=== PATIENT | female | born 1955 | race Caucasian/White ===

== ENCOUNTER 2017-10-07 15:32 | Emergency (ER) | payer MEDICAID ==
[~2017-10-07] VITALS: Ht 160 cm; Wt 86.4 kg
[~2017-10-07 15:32] MED LIST: ALBU18HF INH; ATOR20TA PO; BUTA1CAP57 PO; CLON1TAB PO; ENAL20TA PO; GABA600T PO; HYDR25TA6 PO; METF500T4 PO; METO25TA35 PO; RAME8TAB19 PO; TIOT18CA INH; TRAZ100T15 PO
[2017-10-07 15:33] VITALS: BP 143/81
[2017-10-07] MEDS ORDERED: DEXAMETHASONE 4 MG TABLET PO ONE (16:30)
[2017-10-07] MEDS ORDERED: DEXAMETHASONE 4 MG TABLET ONE (16:53)
[2017-10-07] MEDS ORDERED: ACETAMINOPHEN 325 MG TABLET ONE (16:53)
[2017-10-07] MEDS ORDERED: ACETAMINOPHEN 325 MG TABLET PO ONE (17:00)
== END 2017-10-07 16:58 | disposition home or self-care (01) ==
LOC: ED 16:45
DX: J02.0 Streptococcal pharyngitis (principal); J44.9 Chronic obstructive pulmonary disease, unspecified; K21.9 Gastro-esophageal reflux disease without esophagitis; E78.00 Pure hypercholesterolemia, unspecified; E11.9 Type 2 diabetes mellitus without complications
CPT/HCPCS: 87880; 99283

== ENCOUNTER → 2018-01-15 | Outpatient (CLI) | payer MEDICAID ==
[~2018-01-15] MED LIST changes: -METF500T4 PO; +METF500T5 PO; +OMNIPAQUE 350 MG/ML, 100ML BOTTLE ONE
== END | disposition home or self-care (01) ==
LOC: CFH 12:09
PROVIDERS: ATTEND Internal Medicine Hematology & Oncology
DX: J43.9 Emphysema, unspecified (principal); R59.0 Localized enlarged lymph nodes; K76.0 Fatty (change of) liver, not elsewhere classified; K76.89 Other specified diseases of liver; E27.8 Other specified disorders of adrenal gland; N85.2 Hypertrophy of uterus; D72.829 Elevated white blood cell count, unspecified; D75.1 Secondary polycythemia
CPT/HCPCS: 71260; 74177; Q9967

== ENCOUNTER → 2018-03-03 | Outpatient (CLI) | payer MEDICAID ==
[~2018-03-03] MED LIST changes: -OMNIPAQUE 350 MG/ML, 100ML BOTTLE ONE; +OMNIPAQUE 350 MG/ML, 75ML BOTTLE ONE; +TRAZ-137 PO; -TRAZ100T15 PO
== END | disposition home or self-care (01) ==
LOC: CFH 10:29
PROVIDERS: ATTEND Internal Medicine Hematology & Oncology
DX: J43.2 Centrilobular emphysema (principal); R59.0 Localized enlarged lymph nodes; D72.829 Elevated white blood cell count, unspecified; D75.1 Secondary polycythemia; E11.9 Type 2 diabetes mellitus without complications; K21.9 Gastro-esophageal reflux disease without esophagitis
CPT/HCPCS: 71260; 82565; Q9967

== ENCOUNTER 2019-02-24 00:33 | Emergency (ER) | payer MEDICAID ==
[~2019-02-24] VITALS: Ht 160 cm; Wt 80.2 kg
[~2019-02-24 00:33] MED LIST changes: +METF500T17 PO; -METF500T5 PO; -OMNIPAQUE 350 MG/ML, 75ML BOTTLE ONE
[2019-02-24 00:35] VITALS: BP 178/93
--- NOTE | 2019-02-24 01:15 | NUR ---
TASK RN: TECH AT BEDSIDE FOR WOUND IRRIGATION AND DRESSING
--- NOTE | 2019-02-24 01:46 | NUR ---
TASK RN: DC EDUCATION PROVIDED, PT DEMONSTRATES UNDERSTANDING. PT AMBULATED STEADILY TO DC WITH RN
[2019-04-29] MEDS ORDERED: DOCU-131 PO (08:11)
[2019-04-29] MEDS ORDERED: ASPI-496 PO (08:11)
[2019-04-29] MEDS ORDERED: PROPANOLOL PO (08:11)
[2019-04-29] MEDS ORDERED: GLIP5TAB10 PO (08:11)
[2019-04-29] MEDS ORDERED: RANI150C PO (08:11)
[2019-04-29] MEDS ORDERED: ARIP10TA33 PO (08:11)
[2019-04-29] MEDS ORDERED: ALOG25TA2 PO (08:11)
[2019-04-29] MEDS ORDERED: CYCL-259 PO (08:11)
[2019-04-29] MEDS ORDERED: FLUTICASONE NAS (08:11)
== END 2019-02-24 01:49 | disposition home or self-care (01) ==
LOC: ED 01:47
DX: S51.801A Unspecified open wound of right forearm, initial encounter (principal); I10 Essential (primary) hypertension; E11.9 Type 2 diabetes mellitus without complications; W01.0XXA Fall on same level from slipping, tripping and stumbling without subsequent striking against object, initial encounter; Y93.89 Activity, other specified; Y92.009 Unspecified place in unspecified non-institutional (private) residence as the place of occurrence of the external cause; Y99.8 Other external cause status
CPT/HCPCS: 99283

== ENCOUNTER 2020-01-22 15:23 | Emergency (ER) | payer MEDICAID ==
[~2020-01-22] VITALS: Ht 160 cm; Wt 85.5 kg
[~2020-01-22 15:23] MED LIST changes: +ALOG25TA2 PO; +ARIP10TA33 PO; +ASPI-496 PO; +CYCL-259 PO; +DOCU-131 PO; +FLUTICASONE NAS; +GLIP5TAB10 PO; +PROPANOLOL PO; +RANI150C PO; -TRAZ-137 PO; +TRAZ-175 PO
--- NOTE | 2020-01-22 15:46 | NUR ---
PT AMBULATED TO RESTROOM WITH STEADY GAIT TO PROVIDE URINE SAMPLE. UA ORDERED PER PROTOCOL AND SENT TO LAB.
[2020-01-22 16:06] LABS: MICROSCOPIC INDICATED
--- NOTE | 2020-01-22 16:52 | NUR ---
LAB AT BEDSIDE.
[2020-01-22 17:06] LABS: MEAN CORPUSCULAR HEMOGLOBIN 26.4 pg (27.0-34.8); MEAN CORPUSCULAR VOLUME 82.3 fL (80-100); MEAN PLATELET VOLUME 7.3 fL (7.4-10.4); PLATELET COUNT 315 x10^3/uL (130-400); RED BLOOD COUNT 5.65 x10^6/uL (3.82-5.3); RED CELL DISTRIBUTION WIDTH 14.7 % (9.6-15.2)
[2020-01-22 17:13] LABS: ALBUMIN 3.5 g/dL (3.4-5.0); ANION GAP 6 mmol/L (5-15); CALCIUM 8.7 mg/dL (8.5-10.1); CHLORIDE 106 mmol/L (98-107)
[2020-01-22 17:16] LABS: ALANINE AMINOTRANSFERASE 20 U/L (12-78); ALKALINE PHOSPHATASE 105 U/L (45-117); BILIRUBIN,TOTAL 0.2 mg/dL (0.2-1.0); CREATININE 1.13 mg/dL (0.55-1.02); TOTAL PROTEIN 7.1 g/dL (6.4-8.2)
[2020-01-22] MEDS ORDERED: SODIUM CHLORIDE 0.9% 1,000ML IVBOLUS ONE (17:30)
[2020-01-22] MEDS ORDERED: CEFTRIAXONE PMX 1GM/50ML 50 ML IV ONE (17:30)
[2020-01-22] MEDS ORDERED: SODIUM CHLORIDE FLUSH 10ML SYR IVF ONE (17:30)
[2020-01-22] MEDS ORDERED: CEFTRIAXONE PMX 1GM/50ML 50 ML ONE (17:33)
--- NOTE | 2020-01-22 17:37 | NUR ---
PIV PLACED. IVF RUNNING. 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 NO NEED FOR BLOOD CULTURES. PT HX LYMPHOMA, PT DOES NOT KNOWN BASELING WBC. PROVIDER AWARE.
[2020-01-22 17:38] VITALS: BP 108/69
--- NOTE | 2020-01-22 17:50 | NUR ---
MD AT BEDSIDE TO UPDATE PT ON POC.
[2020-01-22 18:16] LABS: MD YES
[2020-01-22 19:10] LABS: EOS#(MANUAL) 0.62 x10^3/uL (0.0-0.4); EOS% (MANUAL) 3 % (1-7); LYMPH#(MANUAL) 5.54 x10^3/uL (1-3.4); LYMPHS% (MANUAL) 27 % (22-44); MONOS#(MANUAL) 0.21 x10^3/uL (0.3-2.7); MONOS% (MANUAL) 1 % (2-9); REACTIVE LYMPHS # (MANUAL) 5.54 x10^3/uL (0-0); REACTIVE LYMPHS % (MANUAL) 27 % (0-0); SEG#(MANUAL) 7.59 x10^3/uL (1.8-6.8); SEGS% (MANUAL) 37 % (42-75)
[2020-01-22 19:11] LABS: OTHER CELLS # (MANUAL) 1.03 x10^3/uL (0-0); OTHER CELLS % (MANUAL) 5 % (0-0)
[2020-01-22 19:13] LABS: <RBC MORPHOLOGY> NORMAL
[2020-01-22 19:15] LABS: <PLATELET ESTIMATE> ADEQUATE; <PLT MORPHOLOGY> NORMAL PLT MORPH
--- NOTE | 2020-01-22 19:17 | NUR ---
ALL RESULTS ARE BACK AT THIS TIME. CHART UP FOR RECHECK,
== END 2020-01-22 19:45 | disposition home or self-care (01) ==
LOC: ED 16:24
DX: N30.01 Acute cystitis with hematuria (principal); R30.0 Dysuria; D72.829 Elevated white blood cell count, unspecified; R10.9 Unspecified abdominal pain; I10 Essential (primary) hypertension; E11.9 Type 2 diabetes mellitus without complications; K21.9 Gastro-esophageal reflux disease without esophagitis; J44.9 Chronic obstructive pulmonary disease, unspecified; F17.200 Nicotine dependence, unspecified, uncomplicated
CPT/HCPCS: 36415; 74176; 80053; 81001; 85025; 87086; 96365; 99284; J0696; J7030

== ENCOUNTER 2020-05-11 16:05 | Inpatient (IN) | payer MEDICAID ==
[~2020-05-11] VITALS: Ht 160 cm; Wt 86.8 kg
[~2020-05-11 16:05] MED LIST changes: -ENAL20TA PO; +ENAL20TA9 PO
--- NOTE | 2020-05-11 16:35 | NUR ---
THIS IS A 64 YO FEMALE COMING IN WITH C/O "WOKE UP WITH HORRIBLE HEADACHE, LIKE 10/10 PAIN, HAVING TROUBLE BREATHING WITH MY COPD, COUGH BUT I ALWAYS HAVE COUGH, LITTLE NAUSEA." DENIES CP. EKG COMPLETED. HX COPD, HTN, DM TYPE 2, LYMPHOMA. PULSE OX 88% RA IN TRIAGE. 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 VSS, BP 172/79 IN ROOM. ERP IN ROOM FOR EVAL. CALL LIGHT IN REACH
[2020-05-11] MEDS ORDERED: HYDROcodone/APAP 5/325 TABLET ONE (16:47)
--- NOTE | 2020-05-11 16:55 | NUR ---
CONSTRUCTION SPECIALIST IN ROOM, PATIENT MEDICATED PER EMAR, TOLERATED WELL
[2020-05-11] MEDS ORDERED: HYDROcodone/APAP 5/325 TABLET PO ONE (17:00)
[2020-05-11 17:06] LABS: MEAN CORPUSCULAR HEMOGLOBIN 25.9 pg (27.0-34.8); MEAN CORPUSCULAR HGB CONC 31.9 g/dL (32.4-35.8); MEAN PLATELET VOLUME 6.8 fL (7.4-10.4); PLATELET COUNT 286 x10^3/uL (130-400); RED BLOOD COUNT 5.88 x10^6/uL (3.82-5.3); RED CELL DISTRIBUTION WIDTH 15.6 % (9.6-15.2)
[2020-05-11 17:16] LABS: ALBUMIN 3.6 g/dL (3.4-5.0); ANION GAP 3 mmol/L (5-15); CALCIUM 9.4 mg/dL (8.5-10.1); CHLORIDE 109 mmol/L (98-107); CREATININE 0.81 mg/dL (0.55-1.02)
[2020-05-11] MEDS ORDERED: ALBUTEROL SULFATE 2.5 MG/3 ML ONE (17:18)
[2020-05-11 17:20] LABS: TROPONIN I < 0.015 ng/mL (0.000-0.045)
--- NOTE | 2020-05-11 17:21 | NUR ---
BREATHING TX STARTED, PATIENT TOLERATING WELL
[2020-05-11] MEDS ORDERED: ALBUTEROL SULFATE 2.5 MG/3 ML NPPB ONE (17:30)
[2020-05-11 17:41] LABS: MD YES
--- NOTE | 2020-05-11 17:42 | NUR ---
PATIENT DROPPED TO 83% IN ROOM WHILE OFF O2, ERP NOTIFIED. Addendum: 05/11/20 at 1742 by GELY PLACED BACK ON 2L NC, UP TO 94%
[2020-05-11 18:04] LABS: BANDS%(MANUAL) 2 % (0-7); BASOS% (MANUAL) 2 % (0-1); EOS% (MANUAL) 1 % (1-7); LYMPH#(MANUAL) 6.57 x10^3/uL (1-3.4); LYMPHS% (MANUAL) 33 % (22-44); MONOS% (MANUAL) 3 % (2-9); REACTIVE LYMPHS # (MANUAL) 1.99 x10^3/uL (0-0); REACTIVE LYMPHS % (MANUAL) 10 % (0-0); SEG#(MANUAL) 9.75 x10^3/uL (1.8-6.8); SEGS% (MANUAL) 49 % (42-75)
[2020-05-11 18:06] LABS: <PLATELET ESTIMATE> ADEQUATE; <PLT MORPHOLOGY> NORMAL PLT MORPH; ANISOCYTOSIS 1+; POLYCHROMASIA 1+
--- NOTE | 2020-05-11 18:13 | NUR ---
PATIENT DID NOT TOLERATE AMBULATING WITHOUT SPO2 DROPPING, ERP NOTIFIED. PATIENT TO BE ADMITTED. MEAL TRAY ORDERED. PIV PLACED
--- NOTE | 2020-05-11 18:20 | NUR ---
DIABETIC MEAL TRAY ORDERED
[2020-05-11] MEDS ORDERED: methylPREDNISolone SOD SUCC 125 MG/2 ML IVPush ONE (18:30)
[2020-05-11] MEDS ORDERED: methylPREDNISolone SOD SUCC 125 MG/2 ML ONE (18:42)
[2020-05-11] MEDS ORDERED: ASA/APAP/ CAFFEINE TABLET PO PRN (19:30)
[2020-05-11] MEDS ORDERED: ONDANSETRON ODT 4 MG PO PRN (19:30)
[2020-05-11] MEDS ORDERED: POLYETHYLENE GLYCOL 17 GM PACKET PO PRN (19:30)
[2020-05-11] MEDS ORDERED: ENALAPRILAT 1.25 MG/ML, 2ML IVPush PRN (19:30)
[2020-05-11] MEDS ORDERED: BISACODYL 10 MG SUPP PR PRN (19:30)
--- NOTE | 2020-05-11 19:30 | NUR ---
PATIENT RESTING, RESPIRATIONS EVEN AND UNLABORED, VSS, NADN. CALL LIGHT IN REACH, MONITORING IN PLACE
[2020-05-11] MEDS ORDERED: AZITHROMYCIN 500 MG TABLET PO ONE (20:30)
[2020-05-11] MEDS ORDERED: ACETAMINOPHEN 325 MG TABLET PO PRN (20:30)
[2020-05-11] MEDS ORDERED: GLUCAGON 1 MG IM PRN (20:30)
[2020-05-11] MEDS ORDERED: DEXTROSE 50%, 50ML SYRINGE IVPush PRN (20:30)
[2020-05-11] MEDS ORDERED: DEXTROSE 4 GM TAB.CHEW PO PRN (20:30)
[2020-05-11] MEDS ORDERED: IPRATROPIUM 0.5 MG/2.5 ML INHA NPPB PRN (20:30)
[2020-05-11] MEDS ORDERED: ALBUTEROL SULFATE 2.5MG/0.5ML NEB PRN (20:30)
--- NOTE | 2020-05-11 20:40 | NUR ---
CALL PLACED TO [facility] AFTER HOURS NUMBER TO ATTEMPT TO REACH [facility] RESIDENT MARK FLOREZ, WHO PUT ADMISSION FLOOR ORDERS IN FOR THIS PATIENT, BUT DID NOT PUT ADMIT ORDERS IN. DUE TO THAT, PATIENT IS STILL DOWN HERE IN ED. AWAITING CALL BACK FROM MD RESIDENT MARK FLOREZ.
--- NOTE | 2020-05-11 20:44 | NUR ---
MARK FLOREZ MD RESIDENT CALLED BACK, STATES HE WILL PUT ADMIT ORDERS IN ON PATIENT
[2020-05-11 20:56] LABS: FREE T4 (FREE THYROXINE) 1.14 ng/dL (0.76-1.46)
[2020-05-11] MEDS: SODIUM CHLORIDE FLUSH 10ML SYR IVF SCH (21:00)
[2020-05-11] MEDS ORDERED: POTASSIUM CHLORIDE 20 MEQ TAB.ER.PRT PO ONE (21:30)
[2020-05-11] MEDS ORDERED: ACETAMINOPHEN 325 MG TABLET ONE (22:24)
--- NOTE | 2020-05-11 22:55 | NUR ---
REPORT GIVEN TO MARIA G MARCELINO. PLAN OF CARE DISCUSSED
[2020-05-11 23:41] VITALS: BP 160/81
[2020-05-12] MEDS ORDERED: ALBUTEROL-IPRATROPIUM MDI INH INH PRN
[2020-05-12] MEDS: FAMOTIDINE 20 MG TABLET PO SCH ×3 (00:12→20:54)
[2020-05-12] MEDS: ENOXAPARIN 40 MG/0.4 ML SQ SCH ×2 (00:12→20:46)
[2020-05-12] MEDS: GABAPENTIN 300 MG CAPSULE PO SCH ×3 (00:12→20:46)
[2020-05-12 00:17] VITALS: BP 160/81
[2020-05-12] MEDS: INSULIN LISPRO 100 UNITS/ML, PEN SQ-INSULIN SCH ×5 (00:36→21:46)
[2020-05-12 06:03] LABS: BASOPHILS % (AUTO) 0 % (0-1); EOSINOPHILS % (AUTO) 0 % (1-7); LYMPHOCYTES % (AUTO) 33 % (22-44); MEAN CORPUSCULAR HEMOGLOBIN 25.7 pg (27.0-34.8); MEAN CORPUSCULAR HGB CONC 31.9 g/dL (32.4-35.8); MEAN PLATELET VOLUME 7.4 fL (7.4-10.4); MONOCYTES % (AUTO) 1 % (2-9); NEUTROPHILS % (AUTO) 66 % (42-75); PLATELET COUNT 302 x10^3/uL (130-400); RED CELL DISTRIBUTION WIDTH 15.5 % (9.6-15.2)
[2020-05-12 06:08] LABS: ALBUMIN 3.5 g/dL (3.4-5.0); ANION GAP 5 mmol/L (5-15); CALCIUM 9.5 mg/dL (8.5-10.1); CHLORIDE 107 mmol/L (98-107)
[2020-05-12 06:12] LABS: ALANINE AMINOTRANSFERASE 18 U/L (12-78); ALKALINE PHOSPHATASE 96 U/L (45-117); BILIRUBIN,TOTAL 0.4 mg/dL (0.2-1.0); CHOL/HDL RATIO 3.4; CHOLESTEROL, TOTAL 139 mg/dL (140-239); CREATININE 1.18 mg/dL (0.55-1.02); HDL CHOL % 29 % (28-40); HDL CHOLESTEROL (DIRECT) 41 mg/dL (40-60); LDL CHOLESTEROL,CALCULATED 49 mg/dL (54-169); LDL/HDL RATIO 1.2 (0.5-3.0); MD NO; TOTAL PROTEIN 7.4 g/dL (6.4-8.2); TRIGLYCERIDES 247 mg/dL (50-200); VLDL CHOLESTEROL 49 mg/dL (0-25)
[2020-05-12 06:23] VITALS: BP 162/91
[2020-05-12] MEDS ORDERED: FAMOTIDINE 40 MG TABLET ONE ×2 (08:10→20:40)
[2020-05-12] MEDS: ASPIRIN 81 MG TABLET EC PO SCH (08:18)
[2020-05-12] MEDS: ATORVASTATIN 20 MG TABLET PO SCH (08:18)
[2020-05-12] MEDS: AZITHROMYCIN 250 MG TABLET PO SCH (08:19)
[2020-05-12] MEDS: PROPRANOLOL 20 MG TABLET PO SCH (08:19)
[2020-05-12] MEDS: ARIPIPRAZOLE 10 MG TABLET PO SCH (08:19)
[2020-05-12] MEDS: HYDROCHLOROTHIAZIDE 12.5 MG CAPSULE PO SCH (08:19)
[2020-05-12] MEDS: ENALAPRIL 20MG TABLET PO SCH (08:19)
[2020-05-12] MEDS: SENNA/DOCUSATE TABLET PO SCH (08:23)
[2020-05-12] MEDS: SODIUM CHLORIDE FLUSH 10ML SYR IVF SCH ×2 (08:24→20:54)
[2020-05-12 12:31] VITALS: BP 150/82
[2020-05-12] MEDS: ALBUTEROL-IPRATROPIUM MDI INH INH SCH ×2 (15:13→20:15)
[2020-05-12 19:03] VITALS: BP 152/86
[2020-05-12] MEDS ORDERED: OMEP-110 PO (20:48)
[2020-05-12] MEDS: BENZONATATE 100 MG CAPSULE PO SCH (21:45)
[2020-05-13] MEDS: ALBUTEROL-IPRATROPIUM MDI INH INH SCH ×3 (02:29→08:43)
[2020-05-13 03:20] VITALS: BP 139/81
[2020-05-13 05:13] LABS: ANION GAP 5 mmol/L (5-15); CALCIUM 9.2 mg/dL (8.5-10.1); CHLORIDE 107 mmol/L (98-107)
[2020-05-13 05:15] LABS: BASOPHILS % (AUTO) 1 % (0-1); EOSINOPHILS % (AUTO) 0 % (1-7); LYMPHOCYTES % (AUTO) 46 % (22-44); MEAN CORPUSCULAR HEMOGLOBIN 25.8 pg (27.0-34.8); MONOCYTES % (AUTO) 5 % (2-9); NEUTROPHILS % (AUTO) 48 % (42-75); PLATELET COUNT 298 x10^3/uL (130-400); RED BLOOD COUNT 5.38 x10^6/uL (3.82-5.3); RED CELL DISTRIBUTION WIDTH 15.7 % (9.6-15.2)
[2020-05-13 06:22] LABS: MD YES
[2020-05-13 06:24] LABS: BAND#(MANUAL) 0.24 x10^3/uL; BANDS%(MANUAL) 1 % (0-7); LYMPH#(MANUAL) 5.02 x10^3/uL (1-3.4); LYMPHS% (MANUAL) 21 % (22-44); MONOS% (MANUAL) 5 % (2-9); REACTIVE LYMPHS # (MANUAL) 6.21 x10^3/uL (0-0); REACTIVE LYMPHS % (MANUAL) 26 % (0-0); SEG#(MANUAL) 11.23 x10^3/uL (1.8-6.8); SEGS% (MANUAL) 47 % (42-75)
[2020-05-13 06:25] LABS: <PLATELET ESTIMATE> ADEQUATE; <PLT MORPHOLOGY> NORMAL PLT MORPH; <RBC MORPHOLOGY> NORMAL
[2020-05-13 06:34] VITALS: BP 134/77
[2020-05-13] MEDS: INSULIN LISPRO 100 UNITS/ML, PEN SQ-INSULIN SCH ×4 (08:45→20:15)
[2020-05-13] MEDS: ATORVASTATIN 20 MG TABLET PO SCH (09:03)
[2020-05-13] MEDS: ENALAPRIL 20MG TABLET PO SCH (09:03)
[2020-05-13] MEDS: SENNA/DOCUSATE TABLET PO SCH (09:04)
[2020-05-13] MEDS: AZITHROMYCIN 250 MG TABLET PO SCH (09:04)
[2020-05-13] MEDS: OMEPRAZOLE 20 MG CAPSULE.DR PO SCH (09:04)
[2020-05-13] MEDS: HYDROCHLOROTHIAZIDE 12.5 MG CAPSULE PO SCH (09:05)
[2020-05-13] MEDS: ARIPIPRAZOLE 10 MG TABLET PO SCH (09:05)
[2020-05-13] MEDS: PROPRANOLOL 20 MG TABLET PO SCH (09:05)
[2020-05-13] MEDS: ASPIRIN 81 MG TABLET EC PO SCH (09:05)
[2020-05-13] MEDS: GABAPENTIN 300 MG CAPSULE PO SCH ×2 (09:05→20:17)
[2020-05-13] MEDS: SODIUM CHLORIDE FLUSH 10ML SYR IVF SCH ×2 (09:08→20:17)
[2020-05-13] MEDS: ALBUTEROL HFA 90 MCG/SPRAY INH SCH ×3 (11:03→19:18)
[2020-05-13 12:59] VITALS: BP 139/79
[2020-05-13 18:45] VITALS: BP 152/85
[2020-05-13] MEDS: ENOXAPARIN 40 MG/0.4 ML SQ SCH (19:30)
[2020-05-13] MEDS: BENZONATATE 100 MG CAPSULE PO SCH (20:18)
[2020-05-13] MEDS: FAMOTIDINE 20 MG TABLET PO SCH (20:22)
[2020-05-14 00:29] VITALS: BP 131/83
[2020-05-14] MEDS: INSULIN LISPRO 100 UNITS/ML, PEN SQ-INSULIN SCH ×4 (07:00→20:35)
[2020-05-14] MEDS: ALBUTEROL HFA 90 MCG/SPRAY INH SCH ×4 (07:00→18:47)
[2020-05-14 07:57] VITALS: BP 163/85
[2020-05-14] MEDS: ALBUTEROL-IPRATROPIUM MDI INH INH SCH (08:21)
[2020-05-14] MEDS ORDERED: ALBUTEROL-IPRATROPIUM MDI INH INH PRN (08:30)
[2020-05-14] MEDS: OMEPRAZOLE 20 MG CAPSULE.DR PO SCH (08:48)
[2020-05-14] MEDS: SODIUM CHLORIDE FLUSH 10ML SYR IVF SCH ×2 (08:48→20:37)
[2020-05-14] MEDS: ASPIRIN 81 MG TABLET EC PO SCH (08:49)
[2020-05-14] MEDS: PROPRANOLOL 20 MG TABLET PO SCH (08:49)
[2020-05-14] MEDS: GABAPENTIN 300 MG CAPSULE PO SCH ×2 (08:51→20:38)
[2020-05-14] MEDS: SENNA/DOCUSATE TABLET PO SCH (08:51)
[2020-05-14] MEDS: ENALAPRIL 20MG TABLET PO SCH (08:51)
[2020-05-14] MEDS: AZITHROMYCIN 250 MG TABLET PO SCH (08:51)
[2020-05-14] MEDS: HYDROCHLOROTHIAZIDE 12.5 MG CAPSULE PO SCH (08:51)
[2020-05-14 08:52] LABS: MEAN CORPUSCULAR HEMOGLOBIN 25.3 pg (27.0-34.8); MEAN CORPUSCULAR HGB CONC 31.2 g/dL (32.4-35.8); MEAN PLATELET VOLUME 6.8 fL (7.4-10.4); PLATELET COUNT 285 x10^3/uL (130-400); RED BLOOD COUNT 5.97 x10^6/uL (3.82-5.3); RED CELL DISTRIBUTION WIDTH 15.7 % (9.6-15.2)
[2020-05-14 09:13] LABS: MD YES
[2020-05-14 09:15] LABS: BASOS#(MANUAL) 0.28 x10^3/uL (0-0.1); BASOS% (MANUAL) 1 % (0-1); LYMPH#(MANUAL) 8.53 x10^3/uL (1-3.4); LYMPHS% (MANUAL) 31 % (22-44); MONOS#(MANUAL) 0.28 x10^3/uL (0.3-2.7); MONOS% (MANUAL) 1 % (2-9); REACTIVE LYMPHS # (MANUAL) 5.78 x10^3/uL (0-0); REACTIVE LYMPHS % (MANUAL) 21 % (0-0); SEG#(MANUAL) 12.65 x10^3/uL (1.8-6.8); SEGS% (MANUAL) 46 % (42-75)
[2020-05-14 09:16] LABS: <PLATELET ESTIMATE> ADEQUATE; <PLT MORPHOLOGY> NORMAL PLT MORPH; <RBC MORPHOLOGY> NORMAL
[2020-05-14 14:05] VITALS: BP 145/83
[2020-05-14] MEDS: CEFTRIAXONE PMX 1GM/50ML 50 ML IV SCH (14:42)
[2020-05-14] MEDS ORDERED: ARIPIPRAZOLE 5 MG TABLET ONE (20:31)
[2020-05-14 20:34] VITALS: BP 150/79
[2020-05-14] MEDS: BENZONATATE 100 MG CAPSULE PO SCH (20:36)
[2020-05-14] MEDS: ENOXAPARIN 40 MG/0.4 ML SQ SCH (20:36)
[2020-05-14] MEDS: ARIPIPRAZOLE 10 MG TABLET PO SCH (20:37)
[2020-05-14] MEDS: ATORVASTATIN 20 MG TABLET PO SCH (20:38)
[2020-05-14] MEDS: FAMOTIDINE 20 MG TABLET PO SCH (20:38)
[2020-05-15 00:57] VITALS: BP 132/76
[2020-05-15 06:54] VITALS: BP 133/72
[2020-05-15] MEDS: INSULIN LISPRO 100 UNITS/ML, PEN SQ-INSULIN SCH ×5 (07:00→22:25)
[2020-05-15] MEDS: ALBUTEROL HFA 90 MCG/SPRAY INH SCH ×4 (07:51→19:03)
[2020-05-15 09:25] LABS: MEAN CORPUSCULAR HEMOGLOBIN 25.7 pg (27.0-34.8); MEAN CORPUSCULAR HGB CONC 31.5 g/dL (32.4-35.8); MEAN PLATELET VOLUME 6.7 fL (7.4-10.4); PLATELET COUNT 288 x10^3/uL (130-400); RED BLOOD COUNT 5.57 x10^6/uL (3.82-5.3)
[2020-05-15 09:34] LABS: ALANINE AMINOTRANSFERASE 16 U/L (12-78); ALBUMIN 3.3 g/dL (3.4-5.0); ANION GAP 10 mmol/L (5-15); CALCIUM 9.4 mg/dL (8.5-10.1); CHLORIDE 109 mmol/L (98-107); CREATININE 0.96 mg/dL (0.55-1.02)
[2020-05-15 09:39] LABS: ALKALINE PHOSPHATASE 80 U/L (45-117); BILIRUBIN,TOTAL 0.3 mg/dL (0.2-1.0); TOTAL PROTEIN 6.7 g/dL (6.4-8.2)
[2020-05-15] MEDS: ATORVASTATIN 20 MG TABLET PO SCH (10:00)
[2020-05-15] MEDS: SENNA/DOCUSATE TABLET PO SCH (10:00)
[2020-05-15] MEDS: OMEPRAZOLE 20 MG CAPSULE.DR PO SCH (10:00)
[2020-05-15] MEDS: ASPIRIN 81 MG TABLET EC PO SCH (10:01)
[2020-05-15] MEDS: PROPRANOLOL 20 MG TABLET PO SCH (10:01)
[2020-05-15] MEDS: AZITHROMYCIN 250 MG TABLET PO SCH (10:01)
[2020-05-15] MEDS: HYDROCHLOROTHIAZIDE 12.5 MG CAPSULE PO SCH (10:01)
[2020-05-15] MEDS: ENALAPRIL 20MG TABLET PO SCH (10:01)
[2020-05-15] MEDS: ARIPIPRAZOLE 10 MG TABLET PO SCH (10:02)
[2020-05-15 10:10] VITALS: BP 146/80
[2020-05-15 10:10] LABS: MD YES
[2020-05-15 10:12] LABS: EOS#(MANUAL) 0.22 x10^3/uL (0.0-0.4); EOS% (MANUAL) 1 % (1-7); LYMPH#(MANUAL) 2.45 x10^3/uL (1-3.4); LYMPHS% (MANUAL) 11 % (22-44); REACTIVE LYMPHS # (MANUAL) 8.25 x10^3/uL (0-0); REACTIVE LYMPHS % (MANUAL) 37 % (0-0); SEG#(MANUAL) 11.37 x10^3/uL (1.8-6.8); SEGS% (MANUAL) 51 % (42-75)
[2020-05-15] MEDS: GABAPENTIN 300 MG CAPSULE PO SCH ×2 (10:14→22:19)
[2020-05-15] MEDS: SODIUM CHLORIDE FLUSH 10ML SYR IVF SCH ×2 (10:15→22:17)
[2020-05-15 10:22] LABS: <PLATELET ESTIMATE> ADEQUATE; <PLT MORPHOLOGY> NORMAL PLT MORPH
[2020-05-15 10:23] LABS: HYPOCHROMIA 1+
[2020-05-15] MEDS: ALBUTEROL-IPRATROPIUM MDI INH INH SCH (11:07)
[2020-05-15 11:26] VITALS: BP 139/94
[2020-05-15] MEDS: methylPREDNISolone SOD SUCC 40 MG/ML IV SCH ×2 (11:43→22:18)
[2020-05-15] MEDS: INSULIN GLARGINE 100 UNITS/ML, PEN SQ-INSULIN SCH ×2 (12:32→22:24)
[2020-05-15] MEDS: CEFTRIAXONE PMX 1GM/50ML 50 ML IV SCH (14:37)
[2020-05-15] MEDS: AZITHROMYCIN 500 MG in SODIUM CHLORIDE 0.9% 250 ML IV SCH (16:27)
[2020-05-15 20:04] VITALS: BP 160/82
[2020-05-15] MEDS: BENZONATATE 100 MG CAPSULE PO SCH (22:18)
[2020-05-15] MEDS: FAMOTIDINE 20 MG TABLET PO SCH (22:19)
[2020-05-15] MEDS: ENOXAPARIN 40 MG/0.4 ML SQ SCH (22:20)
[2020-05-16 02:35] VITALS: BP 160/91
[2020-05-16 07:06] VITALS: BP 148/87
[2020-05-16] MEDS: ALBUTEROL HFA 90 MCG/SPRAY INH SCH ×5 (07:30→20:30)
[2020-05-16] MEDS: ALBUTEROL-IPRATROPIUM MDI INH INH SCH (07:46)
[2020-05-16] MEDS: INSULIN LISPRO 100 UNITS/ML, PEN SQ-INSULIN SCH ×4 (08:07→21:20)
[2020-05-16] MEDS: INSULIN GLARGINE 100 UNITS/ML, PEN SQ-INSULIN SCH ×2 (08:08→21:19)
[2020-05-16] MEDS: ARIPIPRAZOLE 10 MG TABLET PO SCH (08:09)
[2020-05-16] MEDS: SENNA/DOCUSATE TABLET PO SCH (08:09)
[2020-05-16] MEDS: HYDROCHLOROTHIAZIDE 12.5 MG CAPSULE PO SCH (08:09)
[2020-05-16] MEDS: ENALAPRIL 20MG TABLET PO SCH ×2 (08:09→21:21)
[2020-05-16] MEDS: ATORVASTATIN 20 MG TABLET PO SCH (08:09)
[2020-05-16] MEDS: PROPRANOLOL 20 MG TABLET PO SCH (08:10)
[2020-05-16] MEDS: methylPREDNISolone SOD SUCC 40 MG/ML IV SCH (08:10)
[2020-05-16] MEDS: ASPIRIN 81 MG TABLET EC PO SCH (08:10)
[2020-05-16] MEDS: OMEPRAZOLE 20 MG CAPSULE.DR PO SCH (08:10)
[2020-05-16] MEDS: GABAPENTIN 300 MG CAPSULE PO SCH ×2 (08:10→21:21)
[2020-05-16] MEDS: ALOGLIPTIN BENZOATE HOMEMEDPO SCH (08:11)
[2020-05-16] MEDS: SODIUM CHLORIDE FLUSH 10ML SYR IVF SCH ×2 (08:11→21:21)
[2020-05-16 12:02] VITALS: BP 150/85
[2020-05-16] MEDS: CEFTRIAXONE PMX 1GM/50ML 50 ML IV SCH (14:07)
[2020-05-16] MEDS: AZITHROMYCIN 500 MG in SODIUM CHLORIDE 0.9% 250 ML IV SCH (15:09)
[2020-05-16] MEDS ORDERED: AMLODIPINE 5 MG TABLET PO SCH (19:00)
[2020-05-16 19:12] VITALS: BP 149/85
[2020-05-16] MEDS: ENOXAPARIN 40 MG/0.4 ML SQ SCH (21:20)
[2020-05-16] MEDS: BENZONATATE 100 MG CAPSULE PO SCH (21:21)
[2020-05-16] MEDS: FAMOTIDINE 20 MG TABLET PO SCH (21:22)
[2020-05-16] MEDS: AMLODIPINE 5 MG TABLET PO SCH (21:22)
[2020-05-17 01:35] VITALS: BP 124/80
[2020-05-17] MEDS: INSULIN LISPRO 100 UNITS/ML, PEN SQ-INSULIN SCH ×4 (07:00→19:58)
[2020-05-17 07:14] VITALS: BP 139/84
[2020-05-17] MEDS: SENNA/DOCUSATE TABLET PO SCH (07:44)
[2020-05-17] MEDS: ATORVASTATIN 20 MG TABLET PO SCH (07:45)
[2020-05-17] MEDS: ENALAPRIL 20MG TABLET PO SCH ×2 (07:45→19:38)
[2020-05-17] MEDS: HYDROCHLOROTHIAZIDE 12.5 MG CAPSULE PO SCH (07:45)
[2020-05-17] MEDS: GABAPENTIN 300 MG CAPSULE PO SCH ×2 (07:45→19:37)
[2020-05-17] MEDS: OMEPRAZOLE 20 MG CAPSULE.DR PO SCH (07:46)
[2020-05-17] MEDS: PROPRANOLOL 20 MG TABLET PO SCH (07:46)
[2020-05-17] MEDS: AMLODIPINE 5 MG TABLET PO SCH ×2 (07:46→19:37)
[2020-05-17] MEDS: ASPIRIN 81 MG TABLET EC PO SCH (07:46)
[2020-05-17] MEDS: ARIPIPRAZOLE 10 MG TABLET PO SCH (07:46)
[2020-05-17] MEDS: ALBUTEROL HFA 90 MCG/SPRAY INH SCH ×4 (07:49→19:54)
[2020-05-17] MEDS: ALBUTEROL-IPRATROPIUM MDI INH INH SCH (07:50)
[2020-05-17] MEDS: ALOGLIPTIN BENZOATE HOMEMEDPO SCH (07:51)
[2020-05-17] MEDS: SODIUM CHLORIDE FLUSH 10ML SYR IVF SCH ×2 (07:52→19:54)
[2020-05-17] MEDS: INSULIN GLARGINE 100 UNITS/ML, PEN SQ-INSULIN SCH ×2 (07:52→19:59)
[2020-05-17] MEDS ORDERED: methylPREDNISolone SOD SUCC 40 MG/ML IV SCH (09:00)
[2020-05-17 09:17] LABS: MEAN CORPUSCULAR HEMOGLOBIN 25.9 pg (27.0-34.8); MEAN CORPUSCULAR HGB CONC 31.5 g/dL (32.4-35.8); PLATELET COUNT 304 x10^3/uL (130-400); RED BLOOD COUNT 5.69 x10^6/uL (3.82-5.3); RED CELL DISTRIBUTION WIDTH 15.8 % (9.6-15.2)
[2020-05-17 09:35] LABS: MD YES
[2020-05-17 09:37] LABS: <PLATELET ESTIMATE> ADEQUATE; <PLT MORPHOLOGY> NORMAL PLT MORPH; <RBC MORPHOLOGY> NORMAL; LYMPH#(MANUAL) 5.21 x10^3/uL (1-3.4); LYMPHS% (MANUAL) 21 % (22-44); MONOS#(MANUAL) 0.74 x10^3/uL (0.3-2.7); MONOS% (MANUAL) 3 % (2-9); REACTIVE LYMPHS # (MANUAL) 9.18 x10^3/uL (0-0); REACTIVE LYMPHS % (MANUAL) 37 % (0-0); SEG#(MANUAL) 9.67 x10^3/uL (1.8-6.8); SEGS% (MANUAL) 39 % (42-75)
[2020-05-17] MEDS: CEFTRIAXONE PMX 1GM/50ML 50 ML IV SCH (14:01)
[2020-05-17 14:57] VITALS: BP 133/62
[2020-05-17] MEDS: AZITHROMYCIN 500 MG in SODIUM CHLORIDE 0.9% 250 ML IV SCH (14:58)
[2020-05-17] MEDS: FAMOTIDINE 20 MG TABLET PO SCH (19:37)
[2020-05-17] MEDS: BENZONATATE 100 MG CAPSULE PO SCH (19:37)
[2020-05-17] MEDS: ENOXAPARIN 40 MG/0.4 ML SQ SCH (19:53)
[2020-05-17 19:58] VITALS: BP 120/83
[2020-05-18 00:22] VITALS: BP 119/76
[2020-05-18 06:59] VITALS: BP 118/74
[2020-05-18] MEDS: ALBUTEROL HFA 90 MCG/SPRAY INH SCH ×4 (07:00→23:25)
[2020-05-18] MEDS: ALBUTEROL-IPRATROPIUM MDI INH INH SCH (07:09)
[2020-05-18] MEDS: ALOGLIPTIN BENZOATE HOMEMEDPO SCH (07:16)
[2020-05-18] MEDS: INSULIN LISPRO 100 UNITS/ML, PEN SQ-INSULIN SCH ×4 (07:40→21:15)
[2020-05-18] MEDS: PROPRANOLOL 20 MG TABLET PO SCH (08:20)
[2020-05-18] MEDS: ENALAPRIL 20MG TABLET PO SCH ×2 (08:21→21:12)
[2020-05-18] MEDS: ATORVASTATIN 20 MG TABLET PO SCH (08:21)
[2020-05-18] MEDS: SENNA/DOCUSATE TABLET PO SCH (08:21)
[2020-05-18] MEDS: HYDROCHLOROTHIAZIDE 12.5 MG CAPSULE PO SCH (08:21)
[2020-05-18] MEDS: ARIPIPRAZOLE 10 MG TABLET PO SCH (08:21)
[2020-05-18] MEDS: GABAPENTIN 300 MG CAPSULE PO SCH ×2 (08:21→21:12)
[2020-05-18] MEDS: OMEPRAZOLE 20 MG CAPSULE.DR PO SCH (08:22)
[2020-05-18] MEDS: ASPIRIN 81 MG TABLET EC PO SCH (08:22)
[2020-05-18] MEDS: AMLODIPINE 5 MG TABLET PO SCH ×2 (08:22→21:12)
[2020-05-18] MEDS: SODIUM CHLORIDE FLUSH 10ML SYR IVF SCH ×2 (08:22→21:12)
[2020-05-18] MEDS: INSULIN GLARGINE 100 UNITS/ML, PEN SQ-INSULIN SCH ×2 (08:23→21:14)
[2020-05-18 12:21] VITALS: BP 113/75
[2020-05-18] MEDS: CEFTRIAXONE PMX 1GM/50ML 50 ML IV SCH (14:36)
[2020-05-18] MEDS ORDERED: BUTALB/APAP/CAFFEINE 50MG/325MG/40MG PO PRN (15:30)
[2020-05-18] MEDS: AZITHROMYCIN 500 MG in SODIUM CHLORIDE 0.9% 250 ML IV SCH (15:33)
[2020-05-18 18:27] VITALS: BP 119/77
[2020-05-18] MEDS: OXYBUTYNIN CHLORIDE 5 MG TABLET PO SCH (21:11)
[2020-05-18] MEDS: FAMOTIDINE 20 MG TABLET PO SCH (21:11)
[2020-05-18] MEDS: BENZONATATE 100 MG CAPSULE PO SCH (21:12)
[2020-05-18] MEDS: ENOXAPARIN 40 MG/0.4 ML SQ SCH (21:15)
[2020-05-19 00:22] VITALS: BP 119/76
[2020-05-19] MEDS: ALBUTEROL HFA 90 MCG/SPRAY INH SCH ×2 (07:17→10:30)
[2020-05-19] MEDS: ALBUTEROL-IPRATROPIUM MDI INH INH SCH (07:17)
[2020-05-19 07:23] VITALS: BP 109/73
[2020-05-19] MEDS: INSULIN LISPRO 100 UNITS/ML, PEN SQ-INSULIN SCH ×2 (07:48→11:36)
[2020-05-19 08:12] VITALS: BP 113/75
[2020-05-19] MEDS: SENNA/DOCUSATE TABLET PO SCH (08:16)
[2020-05-19] MEDS: ASPIRIN 81 MG TABLET EC PO SCH (08:16)
[2020-05-19] MEDS: ATORVASTATIN 20 MG TABLET PO SCH (08:16)
[2020-05-19] MEDS: GABAPENTIN 300 MG CAPSULE PO SCH (08:16)
[2020-05-19] MEDS: PROPRANOLOL 20 MG TABLET PO SCH (08:16)
[2020-05-19] MEDS: HYDROCHLOROTHIAZIDE 12.5 MG CAPSULE PO SCH (08:16)
[2020-05-19] MEDS: ENALAPRIL 20MG TABLET PO SCH (08:17)
[2020-05-19] MEDS: ARIPIPRAZOLE 10 MG TABLET PO SCH (08:17)
[2020-05-19] MEDS: AMLODIPINE 5 MG TABLET PO SCH (08:17)
[2020-05-19] MEDS: OMEPRAZOLE 20 MG CAPSULE.DR PO SCH (08:17)
[2020-05-19] MEDS: OXYBUTYNIN CHLORIDE 5 MG TABLET PO SCH (08:18)
[2020-05-19] MEDS: SODIUM CHLORIDE FLUSH 10ML SYR IVF SCH (08:20)
[2020-05-19] MEDS: INSULIN GLARGINE 100 UNITS/ML, PEN SQ-INSULIN SCH (08:20)
[2020-05-19] MEDS: ALOGLIPTIN BENZOATE HOMEMEDPO SCH (08:20)
[2020-05-19] MEDS ORDERED: Albuterol-Ipratropium Mdi INH (11:54)
[2020-05-19] MEDS ORDERED: OXYB5TAB10 PO (11:54)
[2020-05-19 14:03] VITALS: BP 106/72
== END 2020-05-19 14:50 | disposition home or self-care (01) | DRG 193 ==
LOC: ED 16:47 → EDIP 18:20 → 5SO 22:56 → 3N 05-13 13:49 → 4EST 05-14 19:15 → 4WST 05-17 20:25
PROVIDERS: ADMIT Family Medicine; ATTEND Family Medicine
DX: J18.9 Pneumonia, unspecified organism (principal); J96.01 Acute respiratory failure with hypoxia; J44.0 Chronic obstructive pulmonary disease with (acute) lower respiratory infection; J98.11 Atelectasis; J44.1 Chronic obstructive pulmonary disease with (acute) exacerbation; J30.2 Other seasonal allergic rhinitis; K21.9 Gastro-esophageal reflux disease without esophagitis; Z20.828 Contact with and (suspected) exposure to other viral communicable diseases; I16.0 Hypertensive urgency; I10 Essential (primary) hypertension; G25.0 Essential tremor; F17.200 Nicotine dependence, unspecified, uncomplicated; E78.5 Hyperlipidemia, unspecified; E11.40 Type 2 diabetes mellitus with diabetic neuropathy, unspecified; D72.810 Lymphocytopenia; F41.9 Anxiety disorder, unspecified; E11.649 Type 2 diabetes mellitus with hypoglycemia without coma; Z79.4 Long term (current) use of insulin; Z80.3 Family history of malignant neoplasm of breast; Z85.72 Personal history of non-Hodgkin lymphomas; Z86.14 Personal history of Methicillin resistant Staphylococcus aureus infection; Z88.8 Allergy status to other drugs, medicaments and biological substances
CPT/HCPCS: 36415; 84145; 96374; 99285; J7613; 71045; 80048; 80053; 80061; 82040; 82728; 82962; 83036; 83615; 83880; 84439; 84443; 84481; 84484; 85025; 85379; 86140; 87635; 93005; 94640; G0378; J0456; J0696; J1650; J1815; J2920; J2930; J7050; J7512

== ENCOUNTER 2020-09-14 16:21 | Emergency (ER) | payer MEDICAID ==
[~2020-09-14] VITALS: Ht 160 cm; Wt 83.0 kg
[~2020-09-14 16:21] MED LIST changes: +Albuterol-Ipratropium Mdi INH; -CYCL-259 PO; +CYCL10TA2 PO; +OMEP-110 PO; +OXYB5TAB10 PO
--- NOTE | 2020-09-14 16:46 | NUR ---
1st contact - pt is a 65f complaining of headache, sore throat and left ear pain x 2 days. She noticed bleeding in her ear today which brought her in. She does have some blood on the gauze she is carrying. provider at bedside for eval. She was recently around her son who had an earache and sore throat also. call light within reach. no further needs at this time.
[2020-09-14] MEDS ORDERED: OXYcodone/APAP 10/325MG TABLET PO ONE (17:00)
[2020-09-14] MEDS ORDERED: OXYcodone/APAP 10/325MG TABLET ONE (17:22)
[2020-09-14 17:28] LABS: MEAN CORPUSCULAR HEMOGLOBIN 24.2 pg (27.0-34.8); MEAN CORPUSCULAR HGB CONC 31.6 g/dL (32.4-35.8); MEAN PLATELET VOLUME 6.9 fL (7.4-10.4); PLATELET COUNT 437 x10^3/uL (130-400); RED BLOOD COUNT 5.94 x10^6/uL (3.82-5.3); RED CELL DISTRIBUTION WIDTH 15.7 % (9.6-15.2)
[2020-09-14 17:40] LABS: ANION GAP 9 mmol/L (5-15); CALCIUM 9.2 mg/dL (8.5-10.1); CHLORIDE 99 mmol/L (98-107); CREATININE 0.89 mg/dL (0.55-1.02)
[2020-09-14 17:46] LABS: MD YES
[2020-09-14 17:48] LABS: BAND#(MANUAL) 1.34 x10^3/uL; BANDS%(MANUAL) 4 % (0-7); MONOS% (MANUAL) 3 % (2-9); SEG#(MANUAL) 23.05 x10^3/uL (1.8-6.8); SEGS% (MANUAL) 69 % (42-75)
[2020-09-14 17:49] LABS: ANISOCYTOSIS 1+; MICROCYTOSIS 1+
[2020-09-14 17:51] LABS: <PLATELET ESTIMATE> INCREASED; <PLT MORPHOLOGY> NORMAL PLT MORPH
[2020-09-14 17:52] LABS: LYMPH#(MANUAL) 6.68 x10^3/uL (1-3.4); LYMPHS% (MANUAL) 20 % (22-44); PMNS WITH VACUOLES 1+; REACTIVE LYMPHS # (MANUAL) 1.34 x10^3/uL (0-0); REACTIVE LYMPHS % (MANUAL) 4 % (0-0)
--- NOTE | 2020-09-14 18:01 | NUR ---
pt O2 sat dropped to 83% placed on 2L O2 via nc. she is now 93% on 2L. The oxycodone is helping her ear pain. She states its a 6/ now. call light within reach, no further needs at this time.
--- NOTE | 2020-09-14 18:59 | NUR ---
report to Sunita CUMMINS.
--- NOTE | 2020-09-14 19:17 | NUR ---
verified with Dr. alfonso that patient was okay to DC with high WBC. i was made aware of patient's PMH by MD and that this was not uncommon for this patient. VS remain stable on RA on dc. all personal belongings with patient. no IV placed during this visit. steady gait in room. registration on phone with patient due to her having been covid swabbed. discharge instructions reviewed with patient. no further questions. prescriptions handed directly to patient. COVID-19 info sheets given to patient and reviewed. patient aware of need to quarantine for 10 days pending her COVID test
[2020-09-14 19:26] VITALS: BP 111/61
== END 2020-09-14 19:29 | disposition home or self-care (01) ==
LOC: ED 19:19
DX: D72.829 Elevated white blood cell count, unspecified (principal); Z20.822 Contact with and (suspected) exposure to COVID-19; J06.9 Acute upper respiratory infection, unspecified; J02.9 Acute pharyngitis, unspecified; R50.9 Fever, unspecified; R05 Cough; H92.02 Otalgia, left ear; R09.81 Nasal congestion; I10 Essential (primary) hypertension; E11.9 Type 2 diabetes mellitus without complications; F17.210 Nicotine dependence, cigarettes, uncomplicated
CPT/HCPCS: 71045; 80048; 82040; 83605; 85025; 87635; 99284

== ENCOUNTER 2020-09-28 09:37 | Inpatient (IN) | payer MEDICAID ==
[~2020-09-28] VITALS: Ht 160 cm; Wt 78.8 kg
[2020-09-28 20:10] VITALS: BP 141/84
[2020-09-28] MEDS ORDERED: POLYETHYLENE GLYCOL 17 GM PACKET PO PRN (22:30)
[2020-09-28] MEDS: SODIUM CHLORIDE FLUSH 10ML SYR IVF SCH (23:00)
[2020-09-28] MEDS ORDERED: ALBUTEROL HFA 90 MCG/SPRAY INH PRN (23:00)
[2020-09-28] MEDS ORDERED: DEXTROSE 4 GM TAB.CHEW PO PRN (23:00)
[2020-09-28] MEDS ORDERED: GLUCAGON 1 MG IM PRN (23:00)
[2020-09-28] MEDS ORDERED: DEXTROSE 50%, 50ML SYRINGE IVPush PRN (23:00)
[2020-09-28] MEDS ORDERED: PROPRANOLOL 10 MG TABLET PO PRN (23:00)
[2020-09-28] MEDS: PROPRANOLOL MC SCH (23:00)
[2020-09-28] MEDS: CEFTRIAXONE PMX 2GM/50ML 50 ML IVPB SCH (23:32)
[2020-09-28] MEDS: INSULIN REGULAR 100 UNITS/ML, 3ML VIAL SQ-INSULIN SCH (23:36)
[2020-09-29 02:18] VITALS: BP 149/84
[2020-09-29 04:43] LABS: BASOPHILS % (AUTO) 1 % (0-1); EOSINOPHILS % (AUTO) 1 % (1-7); LYMPHOCYTES % (AUTO) 48 % (22-44); MEAN CORPUSCULAR HEMOGLOBIN 24.2 pg (27.0-34.8); MEAN CORPUSCULAR HGB CONC 30.8 g/dL (32.4-35.8); MEAN PLATELET VOLUME 7.8 fL (7.4-10.4); MONOCYTES % (AUTO) 4 % (2-9); NEUTROPHILS % (AUTO) 45 % (42-75); PLATELET COUNT 451 x10^3/uL (130-400); RED BLOOD COUNT 5.07 x10^6/uL (3.82-5.3); RED CELL DISTRIBUTION WIDTH 17.3 % (9.6-15.2)
[2020-09-29 04:53] LABS: ALANINE AMINOTRANSFERASE 21 U/L (12-78); ALBUMIN 2.9 g/dL (3.4-5.0); ANION GAP 8 mmol/L (5-15); CHLORIDE 102 mmol/L (98-107)
[2020-09-29 04:55] LABS: ALKALINE PHOSPHATASE 102 U/L (45-117); BILIRUBIN,TOTAL 0.6 mg/dL (0.2-1.0); TOTAL PROTEIN 7.2 g/dL (6.4-8.2)
[2020-09-29] MEDS: ENOXAPARIN 40 MG/0.4 ML SQ SCH (05:45)
[2020-09-29 05:50] LABS: MD SCAN
[2020-09-29] MEDS: ENALAPRIL 20MG TABLET PO SCH (08:35)
[2020-09-29] MEDS: ATORVASTATIN 40 MG TABLET PO SCH (08:36)
[2020-09-29] MEDS: LINAGLIPTIN 5 MG TAB PO SCH (08:36)
[2020-09-29] MEDS: CYCLOBENZAPRINE 10 MG TABLET PO SCH (08:36)
[2020-09-29] MEDS: HYDROCHLOROTHIAZIDE 12.5 MG CAPSULE PO SCH (08:36)
[2020-09-29] MEDS: DOCUSATE 100 MG CAPSULE PO SCH ×3 (08:36→21:40)
[2020-09-29] MEDS: ARIPIPRAZOLE 10 MG TABLET PO SCH (08:36)
[2020-09-29] MEDS: GABAPENTIN 300 MG CAPSULE PO SCH ×2 (08:36→21:40)
[2020-09-29] MEDS: OMEPRAZOLE 20 MG CAPSULE.DR PO SCH (08:37)
[2020-09-29] MEDS: SENNA/DOCUSATE TABLET PO SCH (08:37)
[2020-09-29] MEDS: ASPIRIN 81 MG TABLET EC PO SCH (08:37)
[2020-09-29] MEDS: INSULIN REGULAR 100 UNITS/ML, 3ML VIAL SQ-INSULIN SCH ×4 (08:38→21:40)
[2020-09-29] MEDS: SODIUM CHLORIDE FLUSH 10ML SYR IVF SCH ×2 (08:39→21:00)
[2020-09-29 09:05] VITALS: BP 132/72
[2020-09-29] MEDS: PROPRANOLOL MC SCH (11:00)
[2020-09-29] MEDS: ALBUTEROL-IPRATROPIUM MDI INH INH SCH (11:11)
[2020-09-29] MEDS: CEFTRIAXONE PMX 2GM/50ML 50 ML IVPB SCH ×2 (11:54→22:14)
[2020-09-29] MEDS: CIPROFLOXACIN DEXAMETHASONE EAR SUSP 7.5ML LEFT EAR SCH ×2 (11:54→21:41)
[2020-09-29 14:18] VITALS: BP 114/76
[2020-09-29 19:23] VITALS: BP 120/77
[2020-09-30 00:18] VITALS: BP 121/76
[2020-09-30 05:41] LABS: MEAN CORPUSCULAR HEMOGLOBIN 24.5 pg (27.0-34.8); MEAN CORPUSCULAR HGB CONC 31.6 g/dL (32.4-35.8); MEAN PLATELET VOLUME 7.7 fL (7.4-10.4); PLATELET COUNT 460 x10^3/uL (130-400); RED BLOOD COUNT 4.89 x10^6/uL (3.82-5.3); RED CELL DISTRIBUTION WIDTH 17.7 % (9.6-15.2)
[2020-09-30 05:46] LABS: ANION GAP 6 mmol/L (5-15); CHLORIDE 102 mmol/L (98-107); CREATININE 0.78 mg/dL (0.55-1.02)
[2020-09-30] MEDS: ENOXAPARIN 40 MG/0.4 ML SQ SCH (06:21)
[2020-09-30 06:24] LABS: MD YES
[2020-09-30 06:26] LABS: BAND#(MANUAL) 0.16 x10^3/uL; BANDS%(MANUAL) 1 % (0-7); EOS#(MANUAL) 0.49 x10^3/uL (0.0-0.4); EOS% (MANUAL) 3 % (1-7); LYMPH#(MANUAL) 7.45 x10^3/uL (1-3.4); LYMPHS% (MANUAL) 46 % (22-44); MONOS#(MANUAL) 0.97 x10^3/uL (0.3-2.7); MONOS% (MANUAL) 6 % (2-9); REACTIVE LYMPHS # (MANUAL) 0.49 x10^3/uL (0-0); REACTIVE LYMPHS % (MANUAL) 3 % (0-0); SEG#(MANUAL) 6.64 x10^3/uL (1.8-6.8); SEGS% (MANUAL) 41 % (42-75)
[2020-09-30] MEDS: ALBUTEROL-IPRATROPIUM MDI INH INH SCH (06:26)
[2020-09-30 06:27] LABS: <PLATELET ESTIMATE> INCREASED; <PLT MORPHOLOGY> NORMAL PLT MORPH; ANISOCYTOSIS 1+; MICROCYTOSIS 1+
[2020-09-30 07:14] VITALS: BP 140/86
[2020-09-30] MEDS: ARIPIPRAZOLE 10 MG TABLET PO SCH (08:40)
[2020-09-30] MEDS: SENNA/DOCUSATE TABLET PO SCH (08:40)
[2020-09-30] MEDS: ENALAPRIL 20MG TABLET PO SCH (08:40)
[2020-09-30] MEDS: DOCUSATE 100 MG CAPSULE PO SCH ×2 (08:40→16:12)
[2020-09-30] MEDS: CIPROFLOXACIN DEXAMETHASONE EAR SUSP 7.5ML LEFT EAR SCH (08:40)
[2020-09-30] MEDS: ATORVASTATIN 40 MG TABLET PO SCH (08:40)
[2020-09-30] MEDS: OMEPRAZOLE 20 MG CAPSULE.DR PO SCH (08:40)
[2020-09-30] MEDS: LINAGLIPTIN 5 MG TAB PO SCH (08:40)
[2020-09-30] MEDS: GABAPENTIN 300 MG CAPSULE PO SCH (08:41)
[2020-09-30] MEDS: CYCLOBENZAPRINE 10 MG TABLET PO SCH (08:41)
[2020-09-30] MEDS: ASPIRIN 81 MG TABLET EC PO SCH (08:41)
[2020-09-30] MEDS: HYDROCHLOROTHIAZIDE 12.5 MG CAPSULE PO SCH (08:41)
[2020-09-30] MEDS: SODIUM CHLORIDE FLUSH 10ML SYR IVF SCH (08:42)
[2020-09-30] MEDS: INSULIN REGULAR 100 UNITS/ML, 3ML VIAL SQ-INSULIN SCH ×3 (08:43→16:00)
[2020-09-30] MEDS ORDERED: ERTAPENEM 1 GM in SODIUM CHLORIDE 0.9% 50 ML IV SCH (09:00)
[2020-09-30 13:18] VITALS: BP 125/82
== END 2020-09-30 19:40 | disposition home or self-care (01) | DRG 871 ==
LOC: 5SO 19:57
PROVIDERS: ADMIT Internal Medicine; ATTEND Internal Medicine
PROC: 02HV33Z Insertion of Infusion Device into Superior Vena Cava, Percutaneous Approach (ICD-10-PCS; principal; 2020-09-30)
PROC: B5181ZA Fluoroscopy of Superior Vena Cava using Low Osmolar Contrast, Guidance (ICD-10-PCS; 2020-09-30)
PROC: B548ZZA Ultrasonography of Superior Vena Cava, Guidance (ICD-10-PCS; 2020-09-30)
DX: A41.9 Sepsis, unspecified organism (principal); G03.9 Meningitis, unspecified; H70.002 Acute mastoiditis without complications, left ear; F15.20 Other stimulant dependence, uncomplicated; H72.90 Unspecified perforation of tympanic membrane, unspecified ear; I10 Essential (primary) hypertension; Z80.3 Family history of malignant neoplasm of breast; Z83.3 Family history of diabetes mellitus; Z82.49 Family history of ischemic heart disease and other diseases of the circulatory system; Z87.728 Personal history of other specified (corrected) congenital malformations of nervous system and sense organs; Z86.14 Personal history of Methicillin resistant Staphylococcus aureus infection; Z85.72 Personal history of non-Hodgkin lymphomas; Z88.8 Allergy status to other drugs, medicaments and biological substances; Z91.048 Other nonmedicinal substance allergy status; G20 Parkinson's disease; F17.200 Nicotine dependence, unspecified, uncomplicated; F41.9 Anxiety disorder, unspecified; E11.69 Type 2 diabetes mellitus with other specified complication; E78.00 Pure hypercholesterolemia, unspecified; E78.5 Hyperlipidemia, unspecified; J44.9 Chronic obstructive pulmonary disease, unspecified; Z86.61 Personal history of infections of the central nervous system
CPT/HCPCS: 36415; 36573; 80048; 80053; 82040; 82962; 85025; 94640; G0378; J0696; J1335; J1650; J1815; C1751

== ENCOUNTER → 2021-01-18 | Outpatient (CLI) | payer MEDICAID ==
[~2021-01-18] MED LIST changes: +OMNIPAQUE 350 MG/ML, 75ML BOTTLE ONE
== END | disposition home or self-care (01) ==
LOC: CFH 09:11
PROVIDERS: ATTEND Internal Medicine Hematology & Oncology
DX: C85.10 Unspecified B-cell lymphoma, unspecified site (principal); D75.1 Secondary polycythemia; D72.829 Elevated white blood cell count, unspecified; R59.0 Localized enlarged lymph nodes; E27.8 Other specified disorders of adrenal gland
CPT/HCPCS: 71260; 82565; Q9967